=== PATIENT | female | born 1960 | race Caucasian/White ===

== ENCOUNTER 2023-10-26 10:43 | Emergency (ER) | payer BC, SELFPAY ==
--- NOTE | ~2023-10-26 | XR_ITS ---
EXAMINATION: XR chest 2V DATE: 10/26/2023 11:51 INDICATION: Smoker presenting with cough TECHNIQUE: PA and lateral views of the chest were obtained. COMPARISON: Chest radiograph dated 01/07/2016 FINDINGS: Mild hyperexpansion of lungs with increased lucency and some architectural distortion in the upper rdo ng zones suggestive emphysema. Linear discoid atelectasis near the apex of the heart. No other airspa ce opacities, pulmonary edema, pleural effusion or pneumothorax. The cardiomediastinal silhouette is normal. Cholecystectomy clips in right upper quadrant. Sutures along the midline anterior abdominal w all. IMPRESSION: 1. Emphysema with mild atelectasis at the lingula. Reviewed, dictated and finalized at location A.
[2023-10-26 10:49] VITALS: BP 135/73; PULSE 95; RESP 16; TEMP 36.4; O2SAT 100
[2023-10-26 11:47] LABS: Basophils Absolute Auto 0.1 K/mm3 (0.0-0.1); Basophils Percent Auto 0.6 % (0.2-1.2); Eosinophils Absolute Auto 0.1 K/mm3 (0-0.3); Eosinophils Percent Auto 1.4 % (0-4.4); Hematocrit 39.8 % (37.0-47.0); Hemoglobin 13.2 g/dL (12.0-15.0); Immature Granulocyte Absolute 0.02 K/mm3 (0.00-0.031); Immature Granulocyte Percent A 0.2 % (0-0.5); Lymphocytes Percent Auto 24.9 % (18.3-44.2); Mean Corpuscular HGB Conc 33.2 g/dl (32-36); Mean Corpuscular Hemoglobin 32.7 pg (26-34); Mean Corpuscular Volume 98.5 fl (80-100); Mean Platelet Volume 10.4 fl (7.4-10.4); Monocytes Absolute Auto 0.4 K/mm3 (0.1-0.6); Monocytes Percent Auto 4.5 % (2.6-8.5); Neutrophils Absolute Auto 5.5 K/mm3 (1.3-6.7); Neutrophils Percent Auto 68.4 % (45.5-73.1); Platelet Count Result 231 k/mm3 (150-375); Red Blood Count 4.04 M/mm3 (4.2-5.4); Red Cell Distribution Width 12.7 % (11.5-14.5)
[2023-10-26 12:05] LABS: Alanine Aminotransferase 13 U/L (6-35); Albumin Level 3.8 g/dL (3.5-5.1); Alkaline Phosphatase 92 U/L (38-126); Anion Gap 7 mmol/L (4-12); Aspartate Amino Transferase 28 U/L (14-36); Bilirubin,Total 0.5 mg/dL (0.2-1.3); Blood Urea Nitrogen 18 mg/dL (7-17); Calcium 9.5 mg/dL (8.4-10.2); Carbon Dioxide 26 mmol/L (22-30); Chloride 104 mmol/L (98-107); Estimated CRCL calculation 37 ml/min; Estimated Glomerular Filt Rate > 60; Glucose 111 mg/dL (65-110); Lipase 104 U/L (23-300); Potassium 4.3 mmol/L (3.4-5.0); Sodium 137 mmol/L (137-145)
[2023-10-26 12:13] VITALS: BP 125/93; PULSE 71; RESP 18; TEMP 36.9; O2SAT 100
[2023-10-26] MEDS: BELLADONNA ALK/PHENOB ELIX 10 ML, MAG HYDROX/ALUMINUM HYD/SIMETH 30 ML, LIDOCAINE HCL 2... PO (12:48)
[2023-10-26] MEDS: SODIUM CHLORIDE 0.9% IV 1,000 ML 999 ML IV CONT (12:48)
--- NOTE | 2023-10-26 14:15 | ED.GENADULT ---
HPI - General Adult General Chief complaint: Abdominal Pain Stated complaint: abd pain Time Seen by Provider: 10/26/23 11:21 History of Present Illness HPI narrative: Patient is a 63-year-old female who presents ER with epigastric discomfort. Reports she has not been eating over last week after catching above that a family member who brought her town. Has had increased acid. No fevers or chills or sweats. Reports chronic cough related to smoking. No chest pain or chest pressure. Has not found any alleviating factors. Related Data Allergies Allergy/AdvReac Type Severity Reaction Status Date / Time Penicillins Allergy Unknown Unknown Verified 10/26/23 12:29 Review of Systems Review of Systems: All systems reviewed & are unremarkable except as noted in HPI and below Constitutional: Constitutional: Reports no additional constitutional complaints ENT: Reports system reviewed and no additional complaints, except as documented Cardiovascular: Cardiovascular: Reports no additional cardiovascular complaints Gastrointestinal: Gastrointestinal: Reports abdominal pain, Reports heartburn, Denies nausea and Denies vomiting PMFSH Past Medical History Medical History (Updated 10/26/23 @ 14:23 by Tmiur Huber MD) COPD (chronic obstructive pulmonary disease) Coronary artery disease Hypertension Surgical History Surgical History (Updated 10/26/23 @ 14:23 by Timur Huber MD) History of cholecystectomy History of percutaneous coronary intervention Exam Narrative: GENERAL: Well-appearing, well-nourished, and in no acute distress. HEAD: Normocephalic, atraumatic ENT: Mucous membranes moist. CHEST: Clear to auscultation. No respiratory distress. HEART: Regular rate and rhythm. Normal peripheral pulses. ABDOMEN: Soft, nontender, nondistended. EXTREMITIES: Normal range of motion. No edema. SKIN: Warm, dry, no rash. NEURO: Alert and oriented x3. PSYCH: Normal mood and affect. Course Course Emergency Course: Patient feels improved with IV fluid. Appropriate for discharge home. No pneumonia. Unremarkable labs. Vital Signs Vital signs: Vital Signs Temperature 97.6 F 10/26/23 10:49 Pulse Rate 95 10/26/23 10:49 Respiratory Rate 16 10/26/23 10:49 Blood Pressure 135/73 10/26/23 10:49 Pulse Oximetry 100 10/26/23 10:49 Oxygen Delivery Room Air 10/26/23 10:49 Temperature 98.5 F 10/26/23 12:13 Pulse Rate 71 10/26/23 12:13 Respiratory Rate 18 10/26/23 12:13 Blood Pressure 125/93 H 10/26/23 12:13 Pulse Oximetry 100 10/26/23 12:13 Oxygen Delivery Room Air 10/26/23 12:14 Medical Decision Making Vital Signs Vital Signs: Vital Signs Temperature 97.6 F 10/26/23 10:49 Pulse Rate 95 10/26/23 10:49 Respiratory Rate 16 10/26/23 10:49 Blood Pressure 135/73 10/26/23 10:49 Pulse Oximetry 100 10/26/23 10:49 Oxygen Delivery Room Air 10/26/23 10:49 Temperature 98.5 F 10/26/23 12:13 Pulse Rate 71 10/26/23 12:13 Respiratory Rate 18 10/26/23 12:13 Blood Pressure 125/93 H 10/26/23 12:13 Pulse Oximetry 100 10/26/23 12:13 Oxygen Delivery Room Air 10/26/23 12:14 Lab Data 10/26/23 11:42 10/26/23 11:42 Labs: Lab Results 10/26/23 Range/Units 11:42 WBC 8.0 (4.5-10.0) K/mm3 RBC 4.04 L (4.2-5.4) M/mm3 Hgb 13.2 (12.0-15.0) g/dL Hct 39.8 (37.0-47.0) % MCV 98.5 (80-100) fl MCH 32.7 (26-34) pg MCHC 33.2 (32-36) g/dl RDW 12.7 (11.5-14.5) % Plt Count 231 (150-375) k/mm3 MPV 10.4 (7.4-10.4) fl Immature Gran % (Auto) 0.2 (0-0.5) % Neut % (Auto) 68.4 (45.5-73.1) % Lymph % (Auto) 24.9 (18.3-44.2) % Cobb % (Auto) 4.5 (2.6-8.5) % Eos % (Auto) 1.4 (0-4.4) % Baso % (Auto) 0.6 (0.2-1.2) % Lymph # (Auto) 2.00 (0.9-3.2) K/mm3 Cobb # (Auto) 0.4 (0.1-0.6) K/mm3 Eos # (Auto) 0.1 (0-0.3) K/mm3 Baso # (Auto) 0.1 (0.0-0.1) K/mm3 Abs Immat Gran (
== END 2023-10-26 14:36 | disposition home or self-care (01) ==
PROVIDERS: Emergency Provider Emergency Medicine; PCP Internal Medicine
DX: B34.9 Viral infection, unspecified (principal); I25.10 Atherosclerotic heart disease of native coronary artery without angina pectoris; I10 Essential (primary) hypertension; J44.9 Chronic obstructive pulmonary disease, unspecified
CPT/HCPCS: 36415; 71046; 80053; 83690; 85025; 96360; 99283; A9270; J7030